=== PATIENT | female | born 1935 | race Caucasian/White ===

== ENCOUNTER → 2016-09-19 | Outpatient (CLI) | payer MEDICARE, BC ==
[~2016-09-19] MED LIST: AMLO10TA2 PO; CALC1TAB75 PO; DOCU100C5 PO; IOHEXOL 180 MG/ML 10 ML VIAL. IT ONE; LIDOCAINE 1% Multi-Dose 20 ML VIAL. ID ONE; LOSA100T6 PO; MULT-650 PO; PRAM0.255 PO
--- NOTE | 2016-09-19 14:09 | KCIC ---
PROCEDURE Lumbar radiographs HISTORY Low back pain with left thigh burning increasing the last 6 months to 1 year COMPARISON None FINDINGS Five views of the lumbar spine to include neutral, flexion, and extension lateral radiographs are submitted. There is moderate to severe dextroscoliosis centered upon the mid lumbar spine. There is mild right lateral subluxation of L3 relative to L4 and L4 relative to L5, mild left lateral subluxation of L1 relative to L2. There is variable fairly advanced degenerative disc disease greatest on the right at L1-2 and on the left at L2-3 and L3-4. There is grade 1 anterior spondylolisthesis at L4-5 similar with flexion and extension. There is very minimal grade 1 anterior spondylolisthesis at L5-S1 slightly accentuated with flexion. There is facet degenerative change greater inferiorly of the lumbar spine. IMPRESSION 1. There is moderate to severe lumbar dextroscoliosis. There is abnormal lateral alignment as stated, also grade 1 anterior spondylolisthesis at L5-S1 accentuated with flexion and grade 1 anterior spondylolisthesis at L4-5 similar with flexion and extension. There is multilevel degenerative disc disease. Electronically signed by: Regan Triplett MD (Sep 19, 2016 14:07:48)
--- NOTE | 2016-09-19 14:13 | KCIC ---
PROCEDURE Lumbar myelogram. HISTORY Low back pain with left thigh burning increasing the last 6 months to 1 year TECHNIQUE Patient was informed of the risks to include pain, infection, bleeding, nerve root injury, seizures, allergic reaction. All questions were answered. Patient signed a written consent form for a lumbar myelogram.The patient was placed in a prone oblique position on the fluoroscopy table. External skin site of the lower back was prepped and draped in the usual sterile fashion. Betadine was utilized for cleansing solution. 1 percent lidocaine was utilized for local anesthesia at the anticipated site of puncture of the right [id number] space. A guiding needle was advanced into the soft tissues. Through the guiding needle, a 25 Rafael needle was advanced until return of cerebral spinal fluid. Fifteen cc [id number] injected during fluoroscopic visualization. [place] were removed. There were no immediate complications. Fluoroscopic spot images were acquired of the lumbar spine. The patient was transferred to CT suite for CT examination of the lumbar spine. Fluoroscopy time, fluoroscopy images: Sixty-eight seconds,8 images FINDINGS There is no evidence of myelographic block. There is moderate to severe lumbar dextroscoliosis, multilevel lumbar degenerative disc disease. There is prominent anterior extradural defect at L4-5 at which there is grade 1 anterior spondylolisthesis. There is minimal posterior subluxation of L2 relative to L3 at which there is anterior extradural defect, also small anterior extradural defects at L3-4 and L5-S1. IMPRESSION 1. There is moderate to severe lumbar dextroscoliosis. There is multilevel lumbar degenerative disc disease. 2. There are multilevel anterior extradural defects, prominent anterior extradural defect at L4-5. Electronically signed by: Regan Triplett MD (Sep 19, 2016 14:11:35)
--- NOTE | 2016-09-19 14:58 | KCIC ---
PROCEDURE CT lumbar spine exam. HISTORY Low back pain, degenerative disc disease, stenosis, increasing pain the last 6 months to 1 year into the left leg TECHNIQUE CT imaging was performed of the lumbar spine after injection for the lumbar myelogram, multiplanar reconstruction images submitted. Exposure: One or more of the following individualized dose reduction techniques were utilized for this exam: 1. Automated exposure control. 2. Adjustment of the mA and/or kV according to patient size. 3. Use of iterative reconstruction technique. COMPARISON MRI lumbar spine exam September 05, [address] [facility] FINDINGS Lumbar vertebral body stature is adequate. There is grade 1 anterior spondylolisthesis at L4-5 and L5-S1, negligible posterior subluxation L2 relative to L3. Conus terminates at L1. There is moderate to severe dextroscoliosis centered at L3. There is mild right lateral subluxation of L4 relative to L5 and L3 relative to L4, mild left lateral subluxation of L1 relative to L2. There is advanced degenerative disc disease L1-L2 to L3-4 and to a somewhat lesser degree at L4-5 and L5-S1. There is variable vacuum disc disease throughout the lumbar spine. There is bone demineralization. There is a very large hypodense lesion centered in the left lobe of the liver on the order of 9.6 cm transverse, density characteristics suggestive of a very large cyst. There is scattered atherosclerotic calcification of the abdominal aorta. T12-L1: There is tiny focus of gas extending above the intervertebral disc space in the left paracentral region limits although possibly inadvertently iatrogenic, not associated with significant soft tissue density to confidently suggest extrusion. Spinal canal and neural foramina are adequate. L1-2: There is mild to moderate facet degenerative change and buckling of the ligamentum flavum. There is prominence of posterior epidural fat. There is very shallow posterior bulge. There is again very minimal narrowing of the far left lateral recess. There is mild narrowing of the left neural foramen, right neural foramen adequate. L2-3: There is again broad posterior bulge/protrusion superimposed on the minimally posteriorly subluxed L2 vertebral body margin. There is mild narrowing of the far left lateral recess. There is moderate facet degenerative change and mild to moderate buckling of the ligamentum flavum. There is fairly severe narrowing of the left neural foramen by partially calcified bulge in combination with facet hypertrophic change. Right neural foramen is adequate. L3-L4: There is severe facet hypertrophic change greater on the left. There is moderate to severe buckling of the ligamentum flavum. There is again shallow broad posterior bulge/protrusion which is partially calcified. There are a couple tiny foci of gas above the intervertebral disc space in left lateral recess not associated with significant soft tissue density, again likely inadvertently iatrogenic. There is overall mild spinal stenosis, left greater than right lateral recess stenosis. There is mild to moderate narrowing of the left neural foramen, right neural foramen adequate. L4-5: There is severe facet hypertrophic change. There is moderate to severe buckling of the ligamentum flavum, partially calcified. There is partially calcified, broad posterior bulge/extrusion extending above the intervertebral disc space on the order of 1.1 cm cc by 0.6 cm AP by approximately 1.7 cm transverse. There is moderate to severe narrowing of the left neural foramen, mild narrowing on the right. There is overall moderate spinal stenosis, variable lateral recess stenosis bilaterally. L5-S1: There is severe facet hypertrophic change greater on the right. There is minimal disc osteophyte complex, also shallow protrusion extending into the inferior right neural foramen. There is moderate inferior narrowing of the right neural foramen. Spinal canal is adequate. Left neural foramen is overall adequate. IMPRESSION 1. There is moderate to severe lumbar dextroscoliosis, abnormal alignment as stated. 2. There is multilevel moderate to severe degenerative disc disease. 3. There is moderate spinal stenosis at L4-5, mild spinal stenosis L3-4. 4. There is multilevel lumbar neural foramina compromise as stated greatest on the left at L4-5 and L2-3, to a lesser degree on the right at L5-S1. 5. Very large hypodense lesion of the liver is likely a cyst. Electronically signed by: Regan Triplett MD (Sep 19, 2016 14:56:57)
== END | disposition home or self-care (01) ==
LOC: KCIC 12:19
PROVIDERS: ATTEND Neurological Surgery
DX: M54.5 Low back pain (principal); M48.06 Spinal stenosis, lumbar region
CPT/HCPCS: 72110; 72132; 72265